=== PATIENT | female | born 1990 | race Caucasian/White ===

== ENCOUNTER 2017-04-12 23:41 | Day surgery (SDC) | payer OTHER, SELFPAY ==
[~2017-04-12] VITALS: Ht 162.6 cm; Wt 83.0 kg
[~2017-04-12 23:41] MED LIST: CIPR-249 PO; IBUP80TA PO; NEOM1SOL15 OT; NEOM1SOL17 AD
[2017-04-13] VITALS (7 sets, daily range): BP systolic 112–132; BP diastolic 58–96
[2017-04-13 00:21] LABS: BASO % 0.3 % (0.0-1.0); EOS # 0.2 K/mm3 (0.0-0.50); EOS % 2.2 % (0.0-3.0); LARGE UNSTAINED CELL % 0.4 % (0.0-4.0); LYMPH # 1.3 K/mm3 (1.5-6.5); MEAN CORPUSCULAR HEMOGLOBIN 29.7 pg (27.0-33.0); MEAN CORPUSCULAR VOLUME 87.4 fl (80.0-96.0); MONO # 0.2 K/mm3 (0.0-0.8); MONO % 2.1 % (0.0-5.0); NEUTROPHILS # 9.6 K/mm3 (1.8-7.7); NEUTROPHILS % 84.1 % (36.0-66.0); PLATELET COUNT, AUTOMATED 196 k/mm3 (150-450); RED CELL DISTRIBUTION WIDTH 12.8 % (11.5-14.5); WHITE BLOOD COUNT 11.5 K/mm3 (4.0-10.0)
[2017-04-13 00:46] LABS: ALBUMIN 3.7 GM/DL (3.2-5.2); ALBUMIN/GLOBULIN RATIO 0.88 (1.00-1.93); ALKALINE PHOSPHATASE 66 U/L (45-117); ALT/SGPT 26 U/L (12-78); AMYLASE 27 U/L (25-115); ANION GAP 5 MEQ/L (8-16); AST/SGOT 15 U/L (15-37); BILIRUBIN,DIRECT < 0.1 MG/DL (0.0-0.2); BILIRUBIN,TOTAL 0.2 MG/DL (0.2-1.0); BLOOD UREA NITROGEN 10 MG/DL (7-18); CALCIUM LEVEL 9.3 MG/DL (8.5-10.1); CARBON DIOXIDE LEVEL 28 MEQ/L (21-32); CHLORIDE LEVEL 108 MEQ/L (98-107); GLOMERULAR FILTRATION RATE > 60.0 (>60); GLUCOSE, FASTING 94 MG/DL (70-105); POTASSIUM SERUM 3.9 MEQ/L (3.5-5.1); SODIUM LEVEL 141 MEQ/L (136-145); TOTAL PROTEIN 7.9 GM/DL (6.4-8.2)
[2017-04-13] MEDS ORDERED: ONDANSETRON 4MG/2ML VIAL (J2405) IV ONE (01:00)
[2017-04-13 01:01] LABS: CONTROL LINE UCG INT CTR LINE PRESENT
[2017-04-13] MEDS ORDERED: KETOROLAC 30 MG/ML VIAL (J1885) IV ONE (01:15)
[2017-04-13] MEDS ORDERED: HYDROmorphone HCL 1 MG/ML SYRINGE (J1170) IV ONE ×2 (01:15→02:15)
--- NOTE | 2017-04-13 01:50 | REPUSA ---
CLINICAL HISTORY: Flank pain. TECHNIQUE: Multiple axial, sagittal and coronal CT images were obtained through the abdomen and pelvi s without administration of oral or IV contrast material. COMMENTS: Comparison is made to the prior exam performed on 10/31/2015. The liver is of uniform attenuation without mass or defect. There is no intra or extrahepatic biliary ductal dilatation. The spleen is normal. The gallbladder is within normal limits. The pancreas is of normal contour and attenuation characteristics. There is no evidence of adrenal mass. 6.5x4.2 mm obstructing stone in the right ureter at L3 level. This stone was in the pelvicalyceal zackary up of the right kidney on the prior exam. Moderate right hydroureteronephrosis. 2.2 cm right ovarian cyst. Mild diffuse thickening of the bladder. There is no evidence for appendicitis. There is no bowel wall thickening. No evidence for small or la rge bowel obstruction. There is no evidence of abdominal ascites or lymphadenopathy. There is no evidence of intrinsic or extrinsic bladder mass. There is no pelvic ascites or lymphadeno indira. Images of the lung bases show no evidence of pleural or parenchymal mass. There are no pleural effusi ons. The bony structures are free of lytic or blastic lesions. IMPRESSION: Slippage of a right renal stone to the proximal right ureter. Associated moderate right hydroureteronephrosis. Thickened bladder. Under distention versus cystitis. Right ovarian cyst. Thank you for your kind referral of this patient.
[2017-04-13] MEDS ORDERED: diphenhydrAMINE INJ 50MG/ML VIAL (J1200) IV STA (02:06)
[2017-04-13] MEDS ORDERED: NS 1,000 ML IV ONE ×2 (02:15)
[2017-04-13] MEDS ORDERED: TYLE500T78 PO (02:29)
[2017-04-13] MEDS ORDERED: CIPROFLOXACIN 400 MG in APPROPRIATE DILUENT 1 EA IV ONE (05:30)
[2017-04-13] MEDS ORDERED: CIPROFLOXACIN 400 MG in APPROPRIATE DILUENT 1 EA IV SCH (06:00)
[2017-04-13 06:11] LABS: CONTROL LINE HCG INT CTR LINE PRESENT
[2017-04-13] MEDS ORDERED: ACETAMINOPHEN TAB 650MG DOSE (2X325MG) PO PRN (06:15)
[2017-04-13] MEDS ORDERED: ONDANSETRON 4MG/2ML VIAL (J2405) IV PRN ×2 (06:15→19:30)
[2017-04-13] MEDS ORDERED: PERCOCET 5MG/325MG TAB PO PRN ×2 (06:15→19:30)
[2017-04-13] MEDS: NS 1,000 ML IV SCH (06:48)
[2017-04-13] MEDS: MORPHINE 2 MG/ML 1ML SYRINGE IV PRN ×3 (08:12→15:46)
[2017-04-13] MEDS ORDERED: CONRAY-60 60% 50ML VIAL (Q9961) As Ordered ONE (17:07)
[2017-04-13] MEDS ORDERED: CIPROFLOXACIN/D5W 400 MG/200 ML BAG (J0744) As Ordered ONE (17:08)
--- NOTE | 2017-04-13 17:15 | SMCUROLCON ---
Urology Consultation General Date of Consultation 04/13/17 Reason For Consultation This patient is seen for Kidney Stone. History of Present Illness This is a 27 y/o F w/ a history of kidney stones, who presented to the ED this morning w/ worsening right flank pain. A CT A/P was performed and notable for an obstructing 1cm proximal right ureteral stone. She notes the pain started 2 days ago and gradually got worse. She denies dysuria. She denies fevers. She has no change in medical conditions since she was last seen. 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, cystolitholapaxy Medications Current Medications Current Medications Acetaminophen (Tylenol Tab) 650 mg Q4HP PRN PO MILD PAIN or TEMP > 101; Start 04/13/17 at 06:15; Stop 05/13/17 at 06:14 Diphenhydramine HCl (Benadryl) 12.5 mg STAT STAT IV Last administered on 02:25; Start 04/13/17 at 02:06; Stop 04/13/17 at 02:07; Status DC Home Med (Med Rec Complete!) ASDIRECTED XX ; Start 04/13/17 at 02:30; Stop at 03:01; Status DC Morphine Sulfate (Morphine Sulfate Inj) 2 mg Q2HP PRN IV SEVERE PAIN (PS 8-10) Last administered on 04/13/17 15:46; Start 04/13/17 at 06:15; Stop 04/20/17 at 06:14 Ondansetron HCl (ZOFRAN INJection) 4 mg Q6HP PRN IV NAUSEA OR VOMITING Last administered on 04/13/17 11:08; Start 04/13/17 at 06:15; Stop 05/13/17 at 06:14 Oxycodone/ Acetaminophen (Percocet 5mg/ 325mg Tablet) 1 tab Q4HP PRN PO MODERATE PAIN (PS 5-7); Start 04/13/17 at 06:15; Stop 04/20/17 at 06:14 Sodium Chloride 1,000 ml @ 50 mls/hr Q20H IV Last administered on 04/13/17 06 :48; Start 04/13/17 at 06:10; Stop 05/13/17 at 06:09 Allergies Allergies: Coded Allergies: Penicillins (Verified Allergy, Unknown, 10/21/14) Uncoded Allergies: OPIATES (Adverse Reaction, Intermediate, PT IS NOT ALLERGIC. HAS A HISTROY OF OPIOD ABUSE., 11/19/15) Review of Systems Constitutional: Denies: Fever Skin: Denies: Rash, Lesions, Breakdown, Nail Changes Pulmonary: Denies: Dyspnea, Cough Cardiovascular: Denies Chest Pain, Denies Palpitations Genitourinary: Denies: Dysuria, Frequency Musculoskeletal: Reports: Back Pain (right flank pain) Psych: Reports: Mood Normal Physical Examination General Exam: Alert, Cooperative Chest Exam: Clear to auscultation, Normal air movement Heart Exam: Rate Normal, Regular Rhythm Abdomen Exam: Soft Skin Exam: Nl turgor and temperature Neuro Exam: Normal Speech Psych Exam: Mental status NL, Mood NL Vital Signs/I&O Vital Signs Date Time Temp Pulse Resp B/P (MAP) Pulse Ox O2 Delivery O2 Flow Rate FiO2 04/13/17 16:10 99.2 04/13/17 16:10 14 04/13/17 12:33 Room Air 04/13/17 12:29 92 112/62 (79) 94 I&O- Last 24 Hours up to 6 AM 04/13/17 05:59 Intake Total 2000 ml Balance 2000 ml Laboratory Data 24H Labs Laboratory Tests 2 04/13/17 00:11: White Blood Count 11.5H, Red Blood Count 5.00, Hemoglobin 14.8, Hematocrit 43.7 , Mean Corpuscular Volume 87.4, Mean Corpuscular Hemoglobin 29.7, Mean Corpuscular Hemoglobin Concent 34.0, Red Cell Distribution Width 12.8, Platelet Count 196, Neutrophils (%) (Auto) 84.1H, Lymphocytes (%) (Auto) 11.0L, Monocytes (%) (Auto) 2.1, Eosinophils (%) (Auto) 2.2, Basophils (%) (Auto) 0.3, Neutrophils # (Auto) 9.6H, Lymphocytes # (Auto) 1.3L, Monocytes # (Auto) 0.2, Eosinophils # (Auto) 0.2, Basophils # (Auto) 0.0, Large Unclassified Cells % 0.4 , Large Unclassified Cells # 0.0, Anion Gap 5L, Glomerular Filtration Rate > 60.0, Calcium Level 9.3, Aspartate Amino Transf (AST/SGOT) 15, Alanine Aminotransferase (ALT/SGPT) 26, Alkaline Phosphatase 66, Total Bilirubin 0.2, Direct Bilirubin < 0.1, Total Protein 7.9, Albumin 3.7, Albumin/Globulin Ratio 0.88L, Amylase Level 27, Lipase 175, Human Chorionic Gonadotropin, Qual NEGATIVE 04/13/17 00:42: Urine Appearance CLOUDYH, Urine Color YELLOW, Urine pH 7.0, Urine Specific [place] 1.018, Urine Protein 1+H, Urine Glucose (UA) NEGATIVE, Urine Ketones NEGATIVE, Urine Urobilinogen 0.2, Urine Bilirubin NEGATIVE, Urine Leukocyte Esterase 2+H, Urine Blood 3+H, Urine Nitrite POSITIVE, Urine WBC (Auto) 118H, Urine RBC (Auto) TNTCH, Urine Hyaline Casts (Auto) 0, Urine Bacteria (Auto) 2+H , Urine Squamous Epithelial Cells 10, Urine Mucus (Auto) SMALL, Urine Sperm ( Auto) , Urine Test NEGATIVE CBC/BMP Laboratory Tests 04/13/17 00:11 Red Blood Count 5.00, Mean Corpuscular Volume 87.4, Mean Corpuscular Hemoglobin 29.7, Mean Corpuscular Hemoglobin Concent 34.0, Red Cell Distribution Width 12.8 , Neutrophils (%) (Auto) 84.1 H, Lymphocytes (%) (Auto) 11.0 L, Monocytes (%) ( Auto) 2.1, Eosinophils (%) (Auto) 2.2, Basophils (%) (Auto) 0.3, Neutrophils # ( Auto) 9.6 H, Lymphocytes # (Auto) 1.3 L, Monocytes # (Auto) 0.2, Eosinophils # ( Auto) 0.2, Basophils # (Auto) 0.0 Microbiology Microbiology 04/13/17 Urine Culture, Worksheet Pending Assessment This is a 27 y/o F w/ an obstructing 1cm proximal right ureteral stone, likely in the lower moiety ureter of a duplicated collecting system. Her UA had 118 WBCs and was positive for nitrite. She likely has a UTI. I therefore did not recommend that we try to remove the stone today. I recommended that we keep her on antibiotics and decompress her collecting system by placing a stent. After a discussion of the risks and benefits, informed consent was signed. Plan - informed consent signed for cystoscopy, right ureteral stent placement - will give another dose of cipro distribution specialist to the OR - will plan for discharge home on antibiotics after the stent is placed - keep NPO for now - morphine prn pain MERYL MCCLURE MD Apr 13, 2017 17:14
[2017-04-13] MEDS ORDERED: ONDANSETRON 4MG/2ML VIAL (J2405) As Ordered ONE (18:21)
[2017-04-13] MEDS ORDERED: PROPOFOL 200 MG/20 ML VIAL As Ordered ONE (18:21)
[2017-04-13] MEDS ORDERED: LIDOCAINE 2% INJ 100 MG/5 ML SDV (FOR ANES.) As Ordered ONE (18:21)
[2017-04-13] MEDS ORDERED: MIDAZOLAM INJ 2 MG/2 ML VIAL (J2250) As Ordered ONE (18:21)
[2017-04-13] MEDS ORDERED: dexameTHASONE 4 MG/ML 1ML VIAL (J1100) As Ordered ONE (18:21)
[2017-04-13] MEDS ORDERED: fentaNYL 250 MCG/5 ML INJECTION (J3010) As Ordered ONE (18:21)
[2017-04-13] MEDS ORDERED: PHENYLephrine HCL 500 MCG/5 ML (100MCG/ML) SYRINGE (J2370) As Ordered ONE (18:22)
[2017-04-13] MEDS ORDERED: fentaNYL 100 MCG/2 ML INJECTION (J3010) IV PRN (19:30)
[2017-04-13] MEDS ORDERED: LR 1,000 ML IV SCH (19:30)
[2017-04-13] MEDS ORDERED: MORPHINE 2 MG/ML 1ML SYRINGE IV PRN (19:30)
[2017-04-13] MEDS ORDERED: NICOTINE POLACRILEX 2 MG GUM PO PRN (23:15)
[2017-04-14 02:00] VITALS: BP 115/68
[2017-04-14] MEDS: NS 1,000 ML IV SCH (05:04)
[2017-04-14 06:00] VITALS: BP 95/63
[2017-04-14] MEDS ORDERED: CIPROFLOXACIN 400 MG in APPROPRIATE DILUENT 1 EA IV ONE (06:00)
[2017-04-14 06:31] LABS: MEAN CORPUSCULAR HEMOGLOBIN 30.6 pg (27.0-33.0); MEAN CORPUSCULAR HGB CONC 34.5 g/dl (32.0-36.5); MEAN CORPUSCULAR VOLUME 88.7 fl (80.0-96.0); RED CELL DISTRIBUTION WIDTH 12.9 % (11.5-14.5); WHITE BLOOD COUNT 11.2 K/mm3 (4.0-10.0)
[2017-04-14 07:49] LABS: ANION GAP 8 MEQ/L (8-16); BLOOD UREA NITROGEN 6 MG/DL (7-18); CALCIUM LEVEL 8.9 MG/DL (8.5-10.1); CARBON DIOXIDE LEVEL 22 MEQ/L (21-32); CHLORIDE LEVEL 109 MEQ/L (98-107); CREATININE FOR GFR 0.53 MG/DL (0.55-1.02); GLOMERULAR FILTRATION RATE > 60.0 (>60); GLUCOSE, FASTING 139 MG/DL (70-105); POTASSIUM SERUM 4.4 MEQ/L (3.5-5.1); SODIUM LEVEL 139 MEQ/L (136-145)
[2017-04-14] MEDS ORDERED: CIPR-249 (08:08)
[2017-04-14] MEDS ORDERED: TYLE325T5 PO (08:08)
[2017-04-14] MEDS ORDERED: toradol (08:10)
--- NOTE | 2017-04-14 08:10 | IPNPDOC ---
Assessment/Plan Date Seen The patient was seen on 04/14/17. Patient Summary This is a 27 y/o F who is POD1 s/p cysto w/ right ureteral stent placement for an obstructing 1cm proximal right ureteral stone and likely UTI. She remained afebrile o/n. She has no pain. Plan/VTE VTE Prophylaxis Ordered?: No VTE Exclusion Mechanical Proph: Low Risk for VTE Plan - regular diet - plan discharge home today - patient will call urology office to arrange f/u for definitive stone treatment Subjective Review oF Systems Chief Complaint The patient is a 27-year-old female admitted with a reason for visit of Kidney Stone. Events since Last Encounter No acute events o/n. Pain well-controlled. No n/v. No f/c/ns. Objective Physical Examination General Exam: Alert, Cooperative ABDOMEN EXAM: BS Hypoactive, Soft, No: Tenderness Skin Exam: Nl turgor and temperature Neuro Exam: Normal Speech Psych Exam: Mental status NL, Mood NL Other physical findings no right CVA tenderness Vital Signs/I&O Vital Signs Date Time Temp Pulse Resp B/P (MAP) Pulse Ox O2 Delivery O2 Flow Rate FiO2 04/14/17 06:00 96.9 77 18 95/63 (74) 99 Room Air I&O- Last 24 Hours up to 6 AM 04/14/17 06:00 Intake Total 3155 ml Output Total 1625 ml Balance 1530 ml Laboratory Data Labs 24H Laboratory Tests 2 04/14/17 06:11: Anion Gap 8, Glomerular Filtration Rate > 60.0, Blood Urea Nitrogen 6L, Creatinine 0.53L, Sodium Level 139, Potassium Level 4.4, Chloride Level 109H, Carbon Dioxide Level 22, Calcium Level 8.9 CBC/BMP Laboratory Tests 04/14/17 06:11 Red Blood Count 4.03, Mean Corpuscular Volume 88.7, Mean Corpuscular Hemoglobin 30.6, Mean Corpuscular Hemoglobin Concent 34.5, Red Cell Distribution Width 12.9 , Calcium Level 8.9 Microbiology Microbiology 04/13/17 Urine Culture, Received Pending 04/13/17 Urine Culture, Worksheet Pending MERYL MCCLURE MD Apr 14, 2017 08:10
--- NOTE | 2017-04-14 12:19 | RO ---
DATE OF PROCEDURE: 04/13/2017 PREPROCEDURE DIAGNOSIS: Obstructing right ureteral stone. POSTPROCEDURE DIAGNOSIS: Obstructing right ureteral stone. PROCEDURE: Cystoscopy, right retrograde pyelogram with intraoperative interpretation of images, right ureteral stent placement. SURGEON: Dr. Milton Gaona PARTS DEPARTMENT SUPERVISOR: None. ANESTHESIA: General. OPERATIVE INDICATIONS: This is a 27-year-old female who presented to the emergency room this morning and was found to have an obstructing 1 cm proximal ureteral stone in the ureter of the lower moiety of a duplicated right collecting system. Based on her urinalysis results, she has a urinary tract infection. Because of this, it was recommended she be brought to the operating room today for ureteral stent placement. DESCRIPTION OF PROCEDURE: The patient was brought to the operating room where general anesthesia was induced. Prophylactic antibiotics were infused. She was then placed in dorsal lithotomy position, and prepped and draped in the usual sterile fashion. A rigid cystoscope was inserted into the urethral meatus and advanced into the bladder. Once within the bladder, both ureters were seen inserting on the right side of the trigone. The more lateral and superior ureter was then cannulated with an open ended ureteral catheter and that was advanced all the way up into the renal pelvis. A retrograde pyelogram was performed and was notable for moderate right hydronephrosis as well as what appeared to be a filling defect consistent with a radiolucent stone. A wire was then advanced up the open ended ureteral catheter into the collecting system. The open ended ureteral catheter was then removed and then it was advanced into the other ureteral orifice on the right side. This was advanced all the way up into the collecting system of the upper moiety on the right. A retrograde pyelogram was performed and it was negative for hydronephrosis. This confirmed that the obstructing stone was in the lower moiety on the right. At this point, the open ended ureteral catheter was removed and the previously placed wire was utilized to advance a #6-Upper Sorbian x 22-32 cm JJ ureteral stent up into the collecting system of the lower moiety of the right sided duplicated system. The wire was then removed and there were adequate curls of the stent in the renal pelvis and in the bladder. Of note, a lot of debris drained out of the stent when it was placed. At this time, urine was obtained to be sent for culture. The cystoscope was removed and an #18-Upper Sorbian Romo catheter was inserted into the bladder and filled with 10 mL of sterile water. It was then connected to gravity drainage and this marked the conclusion of the procedure. The patient was then taken out of dorsal lithotomy position, awakened from anesthesia and transported to the recovery room in stable condition. ESTIMATED BLOOD LOSS: 0 mL. COMPLICATIONS: None. SPECIMENS: Urine for culture. PLAN: I am going to keep the patient in the hospital overnight so she can get another dose of IV antibiotics in the morning. I will check labs on her in the morning and remove her catheter. If she remains afebrile and her labs look good , she will be sent home after her last dose of antibiotics. I will plan to send her home on oral antibiotics for 10 days. MARISABEL
--- NOTE | 2017-04-18 20:35 | REP ---
Clinical: Right ureteral stone. Technique: Intraoperative fluoroscopic imaging. Findings: Multiple images from retrograde pyelogram demonstrate a duplicated right collecting system with hydronephrosis and stent placement in the lower pole moiety and a normal appearance without hydronephrosis to the upper pole moiety. Total fluoroscopic time 17 seconds. Impression: Evidence for duplicated right renal collecting system with hydronephrosis and stent placement in the lower pole moiety. Signed by Maury Donaldson MD 04/18/2017 08:26 P
[2017-05-12] MEDS ORDERED: IBUP-1114 PO (10:19)
== END 2017-04-14 09:10 | disposition home or self-care (01) ==
LOC: M ED 23:41 → M OROP 04-13 06:10 → M MS5PR 04-13 12:10 → M OROP 04-14 09:10
PROVIDERS: ATTEND Urology
DX: N20.1 Calculus of ureter (principal); Q63.8 Other specified congenital malformations of kidney; F20.0 Paranoid schizophrenia; F17.210 Nicotine dependence, cigarettes, uncomplicated; Z88.0 Allergy status to penicillin; Z87.442 Personal history of urinary calculi
CPT/HCPCS: 36415; 52332; 74176; 74420; 80048; 80076; 81001; 82150; 83690; 84703; 85025; 85027; 87088; 87186; 96361; 96365; 96375; 96376; 99284; C1726; C2617; J0744; J1100; J1170; J1200; J1885; J2250; J2370; J2405; J3010; Q9961

== ENCOUNTER → 2017-04-26 | Outpatient (CLI) | payer SELFPAY ==
[~2017-04-26] MED LIST changes: +CIPR-249; +IBUP-1114 PO; +TYLE325T5 PO; +TYLE500T78 PO; +toradol
[2017-04-26 19:51] LABS: CALCIUM OXALATE CRYSTALS SMALL
[2017-04-27 10:04] LABS: MEAN CORPUSCULAR HEMOGLOBIN 29.7 pg (27.0-33.0); MEAN CORPUSCULAR HGB CONC 33.6 g/dl (32.0-36.5); MEAN CORPUSCULAR VOLUME 88.3 fl (80.0-96.0)
[2017-04-27 10:13] LABS: ANION GAP 8 MEQ/L (8-16); BLOOD UREA NITROGEN 8 MG/DL (7-18); CALCIUM LEVEL 9.2 MG/DL (8.5-10.1); CARBON DIOXIDE LEVEL 22 MEQ/L (21-32); CHLORIDE LEVEL 106 MEQ/L (98-107); GLOMERULAR FILTRATION RATE > 60.0 (>60); GLUCOSE, FASTING 89 MG/DL (70-105); POTASSIUM SERUM 3.8 MEQ/L (3.5-5.1); SODIUM LEVEL 136 MEQ/L (136-145)
== END ==
LOC: M SMT 14:18
PROVIDERS: ATTEND Urology
DX: Z01.818 Encounter for other preprocedural examination (principal); N20.0 Calculus of kidney; N39.0 Urinary tract infection, site not specified

== ENCOUNTER → 2017-05-26 | Day surgery (SDC) | payer SELFPAY ==
[~2017-05-26] VITALS: Ht 165.1 cm; Wt 77.1 kg
[~2017-05-26] MED LIST changes: +LR 1,000 ML IV ONE; +LevoFLOXacin IV 500 MG in APPROPRIATE DILUENT 1 EA IV ONE
[2017-05-26 12:03] VITALS: BP 126/68
[2017-05-26 12:20] LABS: CONTROL LINE UCG INT CTR LINE PRESENT
[2017-05-26 12:25] LABS: CALCIUM OXALATE CRYSTALS SMALL
== END ==
LOC: M SDC 11:31
PROVIDERS: ATTEND Urology
DX: N20.0 Calculus of kidney (principal); Z53.09 Procedure and treatment not carried out because of other contraindication

== ENCOUNTER 2017-06-02 10:14 | Day surgery (SDC) | payer SELFPAY ==
[~2017-06-02 10:14] MED LIST changes: -LR 1,000 ML IV ONE; -LevoFLOXacin IV 500 MG in APPROPRIATE DILUENT 1 EA IV ONE
[2017-06-02] MEDS ORDERED: D5W/0.2% SODIUM CHLORIDE 250 ML IV ONE (10:30)
[2017-06-02] MEDS ORDERED: LIDOCAINE 1% SDV 5 ML VIAL SQ ONE (10:30)
[2017-06-02] MEDS ORDERED: LevoFLOXacin IV 500 MG in APPROPRIATE DILUENT 1 EA IV ONE (11:00)
[2017-06-02] MEDS ORDERED: LR 1,000 ML IV ONE (11:00)
[2017-06-02] MEDS ORDERED: LIDOCAINE 2% INJ 100 MG/5 ML SDV (FOR ANES.) As Ordered ONE (11:21)
[2017-06-02] MEDS ORDERED: PROPOFOL 200 MG/20 ML VIAL As Ordered ONE (11:21)
[2017-06-02] MEDS ORDERED: fentaNYL 100 MCG/2 ML INJECTION (J3010) As Ordered ONE (11:21)
[2017-06-02] MEDS ORDERED: dexameTHASONE 4 MG/ML 1ML VIAL (J1100) As Ordered ONE (11:21)
[2017-06-02] MEDS ORDERED: ONDANSETRON 4MG/2ML VIAL (J2405) As Ordered ONE (11:21)
[2017-06-02] MEDS ORDERED: MIDAZOLAM INJ 2 MG/2 ML VIAL (J2250) As Ordered ONE (11:22)
[2017-06-02 11:55] LABS: CONTROL LINE UCG INT CTR LINE PRESENT
[2017-06-02] MEDS ORDERED: CONRAY-60 60% 50ML VIAL (Q9961) As Ordered ONE (12:48)
[2017-06-02] MEDS ORDERED: PHENYLephrine HCL 500 MCG/5 ML (100MCG/ML) SYRINGE (J2370) As Ordered ONE (13:26)
[2017-06-02] MEDS ORDERED: HYDROmorphone HCL 2 MG/ML 1ML VIAL (J1170) As Ordered ONE (13:36)
[2017-06-02] MEDS ORDERED: fentaNYL 100 MCG/2 ML INJECTION (J3010) IV PRN (14:15)
[2017-06-02] MEDS ORDERED: LR 1,000 ML IV SCH (14:15)
[2017-06-02] MEDS ORDERED: METOCLOPRAMIDE INJ 10MG/2ML VIAL (J2765) IV PRN (14:15)
[2017-06-02] MEDS ORDERED: ONDANSETRON 4MG/2ML VIAL (J2405) IV PRN (14:15)
[2017-06-02] MEDS ORDERED: MEPERIDINE INJ 25 MG/ML VIAL (J2175) IV PRN (14:15)
[2017-06-02] MEDS ORDERED: PERCOCET 5MG/325MG TAB PO PRN ×3 (14:15→14:30)
--- NOTE | 2017-06-02 14:22 | REP ---
RETROGRADE PYELOGRAM: Three views. HISTORY: Kidney stone. 7 seconds of fluoroscopy time is reported. FINDINGS: A sequence of three fluoroscopically obtained intraprocedural spot radiographs of the abdomen document double pigtail ureteral stent placement, guidewire manipulation, and contrast injection retrograde. No laterality markers are visible. Signed by Bipin Mohamud MD 06/02/2017 04:42 P
[2017-06-02] MEDS ORDERED: oxyBUTYnin 5 MG TAB PO PRN (14:30)
[2017-06-02 14:40] VITALS: BP 117/59
--- NOTE | 2017-06-05 07:05 | RO ---
DATE OF PROCEDURE: 06/02/2017 PREPROCEDURE DIAGNOSIS: Right kidney stone. POSTPROCEDURE DIAGNOSIS: Right kidney stone. PROCEDURE: Cystoscopy, right ureteroscopy with laser lithotripsy and basket extraction of stones, right retrograde pyelogram with intraoperative interpretation of images, right ureteral stent placement. SURGEON: Milton Gaona MD WAREHOUSE SPECIALIST: None. ANESTHESIA: General. OPERATIVE INDICATIONS: This is a 27-year-old female with a duplicated right collecting system who was brought to the operating room a little over a month ago for right ureteral stent placement for an obstructing 1 cm proximal right ureteral stone in the lower moiety of her duplicated system. When that stent was placed, the stone was pushed back up into the kidney. She is here today for treatment of the stone. DESCRIPTION OF PROCEDURE: The patient was brought to the operating room and general anesthesia was induced. Prophylactic antibiotics were infused. She was then placed in a dorsal lithotomy position and prepped and draped in the usual sterile fashion. A rigid cystoscope was inserted into the urethral meatus and advanced into the bladder. Once within the bladder, the previously placed stent was seen coming out of the ureteral orifice associated with lower pole moiety. A wire was then advanced up the collecting system on one side of the stent. The stent was then removed leaving the wire in place. At this point, a ureteral access sheath was advanced over the wire up into the collecting system. The stylette was removed and the wire was secured to the draping surface to serve as a safety wire. The flexible ureteroscope was then advanced up the access sheath and within the kidney the 1 cm stone was seen. The stone was then fragmented into several smaller pieces using a 200 micron laser fiber. All these fragments were then removed using a basket. I then examined the remainder of the kidney and any other stone fragments were broken down into tiny pieces using the laser. All remaining fragments were small enough to pass. At this point, a retrograde pyelogram was performed and it was notable for mild right hydronephrosis with no extravasation. I then removed the ureteral access sheath along with the ureteroscope and no additional stones were seen within the ureter. At this point, the previously placed wire was utilized to advance a 7 Spanish x 22-32 cm JJ ureteral stent up into the collecting system associated with the lower pole moiety of the right kidney. The wire was then removed and there were adequate curls of the stent in the renal pelvis and in the bladder. The bladder was then emptied of all fluid and this marked the conclusion of the procedure. The patient was then taken out of dorsal lithotomy position, awakened from anesthesia and transported to the recovery room in stable condition. ESTIMATED BLOOD LOSS: Zero mL. COMPLICATIONS: None. SPECIMENS: Kidney stone fragments. PLAN: The patient will followup in clinic in a few weeks for stent removal. MARISABEL
== END 2017-06-02 15:15 | disposition home or self-care (01) ==
LOC: M SDC 10:14
PROVIDERS: ATTEND Urology
DX: N20.0 Calculus of kidney (principal); F41.9 Anxiety disorder, unspecified; F32.9 Major depressive disorder, single episode, unspecified; R51 Headache; F20.0 Paranoid schizophrenia; Z88.0 Allergy status to penicillin; Z88.8 Allergy status to other drugs, medicaments and biological substances; Z72.0 Tobacco use
CPT/HCPCS: 52356; 74420; 81001; 82360; 84703; 87086; 88300; C1769; C2617; J1100; J1170; J1956; J2250; J2370; J2405; J3010; Q9961

== ENCOUNTER 2018-05-08 13:04 | Emergency (ER) | payer MEDICAID, OTHER, SELFPAY ==
[2018-05-08 14:27] LABS: CONTROL LINE UCG INT CTR LINE PRESENT; URINE PREG TEST NEGATIVE (NEGATIVE)
[2018-05-08 14:29] LABS: AMORPHOUS SEDIMENT SMALL (NEGATIVE); APPEARANCE, URINE HAZY (CLEAR); BACTERIA, URINE AUTO 2+ (NEGATIVE); BILIRUBIN, URINE AUTO NEGATIVE (NEGATIVE); BLOOD, URINE BLOOD 1+ (NEGATIVE); COLOR, URINE YELLOW (YELLOW); GLUCOSE, URINE (UA) AUTO NEGATIVE (NEGATIVE); KETONE, URINE AUTO NEGATIVE (NEGATIVE); LEUKOCYTE ESTERASE, URINE AUTO TRACE (NEGATIVE); MUCUS, URINE SMALL (NEGATIVE); NITRITE, URINE AUTO POSITIVE (NEGATIVE); PROTEIN, URINE AUTO NEGATIVE (NEGATIVE); RBC, URINE AUTO 2 /HPF (0-3); SPECIFIC GRAVITY URINE AUTO 1.023 (1.002-1.035); SQUAMOUS EPITHELIAL CELL UR AU 2 /HPF (0-6); UROBILINOGEN, URINE AUTO 0.2 mg/dL (0.0-2.0); WBC, URINE AUTO 8 /HPF (0-3)
[2018-05-08] MEDS: KETOROLAC 60 MG/2 ML VIAL (J1885) IM (15:30)
[2018-05-08] MEDS: NORCO, ANEXSIA 5/325MG TABLET (HYDROcodone/ACETAMINOPHEN) PO (16:06)
== END 2018-05-08 16:48 | disposition home or self-care (01) ==
LOC: M ED 13:04
DX: N39.0 Urinary tract infection, site not specified (principal); N83.201 Unspecified ovarian cyst, right side; Z87.442 Personal history of urinary calculi; Z96.0 Presence of urogenital implants; Z88.0 Allergy status to penicillin
CPT/HCPCS: J1885

== ENCOUNTER 2018-06-15 06:27 | Emergency (ER) | payer MEDICAID, OTHER | END 2018-06-15 08:58 | disposition home or self-care (01) | LOC: M ED 06:27 | DX: J06.9 Acute upper respiratory infection, unspecified (principal); F20.9 Schizophrenia, unspecified; F41.9 Anxiety disorder, unspecified; F31.9 Bipolar disorder, unspecified; F43.10 Post-traumatic stress disorder, unspecified; F17.200 Nicotine dependence, unspecified, uncomplicated; Z88.0 Allergy status to penicillin | CPT/HCPCS: 71046 ==

== ENCOUNTER 2018-06-20 05:49 | Emergency (ER) | payer OTHER, MEDICAID | END 2018-06-20 07:30 | disposition home or self-care (01) | LOC: M ED 05:49 | DX: J20.9 Acute bronchitis, unspecified (principal); J06.9 Acute upper respiratory infection, unspecified; F43.10 Post-traumatic stress disorder, unspecified; F31.9 Bipolar disorder, unspecified; F17.210 Nicotine dependence, cigarettes, uncomplicated; Z88.0 Allergy status to penicillin; Z79.899 Other long term (current) drug therapy | CPT/HCPCS: 71046 ==

== ENCOUNTER 2018-07-02 21:58 | Emergency (ER) | payer OTHER | END 2018-07-03 03:13 | disposition left against medical advice (07) | LOC: M ED 21:58 | DX: Z53.21 Procedure and treatment not carried out due to patient leaving prior to being seen by health care provider (principal) ==

== ENCOUNTER 2018-07-03 14:39 | Emergency (ER) | payer OTHER ==
[2018-07-03] MEDS: GI COCKTAIL 50ML BTL(HYOSCYAMINE/MAALOX/LIDOCAINE VISCOUS)(1:3:1) PO (16:53)
[2018-07-03] MEDS: ONDANSETRON 4 MG ORAL DISINTEGRATING TAB (Q0162 PER 1MG) PO (16:53)
== END 2018-07-03 17:36 | disposition home or self-care (01) ==
LOC: M ED 14:39
DX: R10.13 Epigastric pain (principal); K21.9 Gastro-esophageal reflux disease without esophagitis
CPT/HCPCS: Q0162

== ENCOUNTER 2019-03-04 12:40 | Emergency (ER) | payer OTHER ==
[~2019-03-04] VITALS: Ht 162.6 cm; Wt 79.5 kg
[~2019-03-04 12:40] MED LIST changes: +ACET-683 PO; +ALL10TAB28 PO; +CORTOTSO AD; +MACR100C43 PO; -NEOM1SOL15 OT; -NEOM1SOL17 AD; +NEOM1SOL8 OT; +PRIL20TA2 PO; +PROAAER10 INH; +TESS100C PO; +ZITHTAB PO; +ZOFR4TAB14 PO
[2019-03-04 15:08] LABS: HEMATOCRIT 42.8 % (36.0-47.0); HEMOGLOBIN 14.4 g/dl (12.0-15.5); MEAN CORPUSCULAR HEMOGLOBIN 29.2 pg (27.0-33.0); MEAN CORPUSCULAR HGB CONC 33.6 g/dl (32.0-36.5); MEAN CORPUSCULAR VOLUME 86.8 fl (80.0-96.0); PLATELET COUNT, AUTOMATED 211 10^3/uL (150-450); RED BLOOD COUNT 4.93 10^6/uL (4.00-5.40); WHITE BLOOD COUNT 10.4 10^3/uL (4.0-10.0)
[2019-03-04 15:30] LABS: BLOOD UREA NITROGEN 6 MG/DL (7-18); CALCIUM LEVEL 8.7 MG/DL (8.5-10.1); CARBON DIOXIDE LEVEL 21 MEQ/L (21-32); CHLORIDE LEVEL 107 MEQ/L (98-107); CREATININE FOR GFR 0.47 MG/DL (0.55-1.30); GLOMERULAR FILTRATION RATE > 60.0 (>60); GLUCOSE, FASTING 78 MG/DL (70-100); POTASSIUM SERUM 3.5 MEQ/L (3.5-5.1); SODIUM LEVEL 137 MEQ/L (136-145)
[2019-03-04 15:51] LABS: HCG, SERUM QUALITATIVE POSITIVE (NEGATIVE)
[2019-03-04] MEDS ORDERED: CIPROFLOXACIN 400 MG in APPROPRIATE DILUENT 1 EA IV ONE (16:00)
[2019-03-04] MEDS ORDERED: ONDANSETRON 4MG/2ML VIAL (J2405) IV ONE (16:00)
[2019-03-04] MEDS ORDERED: KETOROLAC 30 MG/ML VIAL (J1885) IV ONE (16:00)
[2019-03-04] MEDS ORDERED: NS 1,000 ML IV ONE (16:00)
[2019-03-04] MEDS ORDERED: NITROFURANTOIN (MACROBID) 100 MG CAP PO ONE (16:15)
[2019-03-04 17:01] VITALS: BP 121/58
--- NOTE | 2019-03-04 17:15 | REP ---
RENAL AND BLADDER ULTRASOUND: Real-time sonographic evaluation of the left kidney is performed and demonstrates both kidneys to be normal in size and echotexture, right kidney measuring 12.8 x 4.6 x 4.1 cm and left kidney 12.1 x 4.8 x 5.4 cm. There is no hydronephrosis bilaterally. No renal stones are seen. There is scarring of the mid right kidney. Urinary bladder is not optimally distended and not optimally evaluated. IMPRESSION: No hydronephrosis or nephrolithiasis. Electronically Signed by Kevin Do MD 03/04/2019 07:54 P
[2019-03-04] MEDS ORDERED: MACR100C43 PO (17:34)
[2019-03-04] MEDS ORDERED: ONDA4TAB6 PO (17:34)
--- NOTE | 2019-03-05 00:06 | ECGEPIP ---
Stationary ECG Study [facility] - ED Test Date: 2019-03-04 Pat Name: DENNYS GANDARA Department: Room: - Gender: F Instrument Adjuster: : 1990 Requested By: Maria Eugenia Stein PA-C Order Number: [id number] Reading MD: Kaushik Hinson Measurements Intervals [place] Rate: 60 P: 40 WV: 150 QRS: 15 QRSD: 93 T: 15 QT: 414 QTc: 415 Interpretive Statements SINUS RHYTHM Comparison tracing not on file Electronically Signed On 03-05-2019 0:06:31 EDT by Kaushik Hinson
== END 2019-03-04 17:50 | disposition home or self-care (01) ==
LOC: M ED 12:40
DX: N39.0 Urinary tract infection, site not specified (principal); R10.9 Unspecified abdominal pain; R11.2 Nausea with vomiting, unspecified; Z87.442 Personal history of urinary calculi; R51 Headache; F20.0 Paranoid schizophrenia; Z96.0 Presence of urogenital implants; Z72.0 Tobacco use; Z88.0 Allergy status to penicillin
CPT/HCPCS: 76775; 80048; 81001; 84703; 85027; 87086; 93005; 96361; 96374; 99284; J2405

== ENCOUNTER → 2019-04-02 | Outpatient (REF) | payer OTHER ==
[~2019-04-02] MED LIST changes: +ONDA4TAB6 PO
== END ==
LOC: M LAB REF 17:37
PROVIDERS: ATTEND Advanced Practice Midwife
DX: Z12.4 Encounter for screening for malignant neoplasm of cervix (principal)

== ENCOUNTER → 2019-04-23 | Outpatient (CLI) | payer OTHER, SELFPAY ==
[2019-04-23 12:42] LABS: BASO % 0.2 % (0.0-1.0); EOS # 0.1 10^3/uL (0.0-0.50); EOS % 1.1 % (0.0-3.0); HEMATOCRIT 38.4 % (36.0-47.0); HEMOGLOBIN 13.2 g/dl (12.0-15.5); LYMPH # 1.5 10^3/uL (1.5-6.5); LYMPH % 14.6 % (24.0-44.0); MEAN CORPUSCULAR HEMOGLOBIN 29.6 pg (27.0-33.0); MEAN CORPUSCULAR HGB CONC 34.4 g/dl (32.0-36.5); MEAN CORPUSCULAR VOLUME 86.1 fl (80.0-96.0); MONO # 0.5 10^3/uL (0.0-0.8); MONO % 4.5 % (0.0-5.0); NEUTROPHILS # 8.4 10^3/uL (1.8-7.7); NEUTROPHILS % 78.9 % (36.0-66.0); PLATELET COUNT, AUTOMATED 170 10^3/uL (150-450); RED BLOOD COUNT 4.46 10^6/uL (4.00-5.40); WHITE BLOOD COUNT 10.6 10^3/uL (4.0-10.0)
[2019-04-23 14:45] LABS: CHLAMYDIA DNA AMPLIFICATION NEGATIVE (NEGATIVE); GC DNA AMPLIFICATION NEGATIVE (NEGATIVE)
[2019-04-24 09:24] LABS: HEPATITIS C VIRUS ABY INDEX 0.1 INDEX (<0.8); HIV 1&2 SCREEN CENTAUR NEGATIVE (NEGATIVE); RUBELLA IgG QUALITATIVE IMMUNE (IMMUNE)
== END ==
LOC: M LAB 12:06
PROVIDERS: ATTEND Advanced Practice Midwife
DX: Z34.81 Encounter for supervision of other normal pregnancy, first trimester (principal); Z3A.00 Weeks of gestation of pregnancy not specified

== ENCOUNTER 2019-05-06 21:42 | Emergency (ER) | payer SELFPAY ==
[~2019-05-06] VITALS: Ht 162.6 cm; Wt 78.9 kg
[2019-05-06 22:32] LABS: URINE PREG TEST POSITIVE (NEGATIVE)
[2019-05-06 22:34] LABS: APPEARANCE, URINE CLOUDY (CLEAR); BACTERIA, URINE AUTO 2+ (NEGATIVE); BILIRUBIN, URINE AUTO NEGATIVE (NEGATIVE); BLOOD, URINE BLOOD 1+ (NEGATIVE); COLOR, URINE YELLOW (YELLOW); GLUCOSE, URINE (UA) AUTO NEGATIVE (NEGATIVE); KETONE, URINE AUTO NEGATIVE (NEGATIVE); LEUKOCYTE ESTERASE, URINE AUTO 3+ (NEGATIVE); MUCUS, URINE SMALL (NEGATIVE); NITRITE, URINE AUTO POSITIVE (NEGATIVE); PROTEIN, URINE AUTO 1+ mg/dL (NEGATIVE); RBC, URINE AUTO 12 /HPF (0-3); SPECIFIC GRAVITY URINE AUTO 1.015 (1.002-1.035); SQUAMOUS EPITHELIAL CELL UR AU 7 /HPF (0-6); UROBILINOGEN, URINE AUTO 0.2 mg/dL (0.0-2.0); WBC, URINE AUTO 105 /HPF (0-3)
[2019-05-06] MEDS ORDERED: NS 1,000 ML IV ONE (23:15)
[2019-05-06] MEDS ORDERED: METOCLOPRAMIDE INJ 10MG/2ML VIAL (J2765) IV ONE (23:15)
[2019-05-06 23:34] LABS: HEMATOCRIT 33.2 % (36.0-47.0); HEMOGLOBIN 11.4 g/dl (12.0-15.5); MEAN CORPUSCULAR HEMOGLOBIN 29.8 pg (27.0-33.0); MEAN CORPUSCULAR HGB CONC 34.3 g/dl (32.0-36.5); MEAN CORPUSCULAR VOLUME 86.7 fl (80.0-96.0); PLATELET COUNT, AUTOMATED 153 10^3/uL (150-450); RED BLOOD COUNT 3.83 10^6/uL (4.00-5.40); WHITE BLOOD COUNT 10.3 10^3/uL (4.0-10.0)
[2019-05-06 23:59] LABS: BLOOD UREA NITROGEN 4 MG/DL (7-18); CALCIUM LEVEL 8.4 MG/DL (8.5-10.1); CARBON DIOXIDE LEVEL 24 MEQ/L (21-32); CHLORIDE LEVEL 103 MEQ/L (98-107); GLOMERULAR FILTRATION RATE > 60.0 (>60); GLUCOSE, FASTING 91 MG/DL (70-100); HCG, SERUM QUANTITATIVE 8664 MIU/ML; POTASSIUM SERUM 3.2 MEQ/L (3.5-5.1); SODIUM LEVEL 135 MEQ/L (136-145)
[2019-05-07 02:03] VITALS: BP 98/52
== END 2019-05-07 02:06 | disposition home or self-care (01) ==
LOC: M ED 21:42
DX: O99.89 Other specified diseases and conditions complicating pregnancy, childbirth and the puerperium (principal); R51 Headache; O23.42 Unspecified infection of urinary tract in pregnancy, second trimester; Z88.0 Allergy status to penicillin; O99.332 Smoking (tobacco) complicating pregnancy, second trimester; F17.210 Nicotine dependence, cigarettes, uncomplicated; Z3A.16 16 weeks gestation of pregnancy
CPT/HCPCS: 80048; 81001; 84702; 84703; 85027; 86850; 86900; 86901; 87088; 87186; 96361; 96374; 99284; J2765

== ENCOUNTER → 2019-06-11 | Outpatient (REF) | payer SELFPAY | LOC: M LAB REF 16:42 | PROVIDERS: ATTEND Advanced Practice Midwife | DX: Z34.82 Encounter for supervision of other normal pregnancy, second trimester (principal) ==

== ENCOUNTER → 2019-06-12 | Outpatient (CLI) | payer MEDICAID, SELFPAY ==
[~2019-06-12] MED LIST changes: -ALL10TAB28 PO; +ALL10TAB29 PO
--- NOTE | 2019-06-13 09:21 | REP ---
Clinical: Anatomical evaluation. Comparison: None . Findings: Examination demonstrates a single live intrauterine in variable presentation. motion is identified by technologist. Placenta is noted the posterior and grade zero without evidence for placenta previa or abruption. Amniotic fluid volume is normal. Cervix measures 4.5 cm in length and appears closed. No evidence for nuchal cord. Gestational age by LMP 21 weeks 1 day with BRENDEN the 10/22/2019 . Gestational age by current measurements 20 weeks 5 days with BRENDEN 10/25/2019 . FHR equals 144 beats per minute. BPD 4.7 cm 20 weeks 2 days HC 17.5 cm 20 weeks 0 days AC 15.7 cm 20 weeks 6 days FL 3.3 cm 20 weeks 3 days HL 3.4 cm 21 weeks 5 days HC/AC ratio 1.11 Estimated weight 364 grams ( 30th percentile). Anatomical assessment demonstrates normal structures including cranium, choroid plexus, cavum, cerebellum/posterior fossa, facial features, lungs, four-chamber heart/ventricular outflow tracts, diaphragm, stomach, cord insertion/three-vessel cord, kidneys/bladder, spine, and extremities. Impression: Single live intrauterine in variable presentation demonstrating appropriate interval growth. 2. Anatomical assessment is complete and normal. No gross abnormalities are identified. Electronically Signed by Maury Donaldson MD 06/13/2019 09:13 A
== END ==
LOC: M RAD 11:01
PROVIDERS: ATTEND Advanced Practice Midwife
DX: Z34.02 Encounter for supervision of normal first pregnancy, second trimester (principal); Z3A.20 20 weeks gestation of pregnancy

== ENCOUNTER → 2019-07-11 | Outpatient (REF) | payer SELFPAY | LOC: M LAB REF 13:09 | PROVIDERS: ATTEND Advanced Practice Midwife | DX: Z34.82 Encounter for supervision of other normal pregnancy, second trimester (principal); Z3A.00 Weeks of gestation of pregnancy not specified ==

== ENCOUNTER → 2019-08-21 | Outpatient (CLI) | payer MEDICAID ==
[2019-08-21 12:46] LABS: HEMATOCRIT 34.8 % (36.0-47.0); HEMOGLOBIN 11.4 g/dl (12.0-15.5); MEAN CORPUSCULAR HGB CONC 32.8 g/dl (32.0-36.5); MEAN CORPUSCULAR VOLUME 88.5 fl (80.0-96.0); PLATELET COUNT, AUTOMATED 175 10^3/uL (150-450); RED BLOOD COUNT 3.93 10^6/uL (4.00-5.40); WHITE BLOOD COUNT 11.2 10^3/uL (4.0-10.0)
== END ==
LOC: M LAB 11:08
PROVIDERS: ATTEND Advanced Practice Midwife
DX: Z34.82 Encounter for supervision of other normal pregnancy, second trimester (principal)

== ENCOUNTER → 2019-10-01 | Outpatient (REF) | payer OTHER, MEDICAID | LOC: M SFHCWAGY 12:58 | PROVIDERS: ATTEND Advanced Practice Midwife | DX: Z34.93 Encounter for supervision of normal pregnancy, unspecified, third trimester (principal) ==

== ENCOUNTER 2019-10-24 23:35 | Inpatient (IN) | payer MEDICAID, OTHER ==
[~2019-10-24] VITALS: Ht 165.1 cm; Wt 93.9 kg
[2019-10-24 23:50] VITALS: BP 133/85
[2019-10-25] VITALS (9 sets, daily range): BP systolic 107–142; BP diastolic 66–82
[2019-10-25] MEDS ORDERED: ceFAZolin SOD 2 GM in IV 1 EA IV STA (00:04)
[2019-10-25] MEDS ORDERED: LACTATED RINGER'S 1000 ML IV STA (00:04)
--- NOTE | 2019-10-25 00:29 | HPEPDOC ---
Obstetrical History & Physical General Date of Admission Oct 25, 2019 @ 00:08 History of Present Illness Patient is a 29-year-old female who presents at 40 weeks 2 days gestation and labor and delivery floor with uterine contractions every 3-5 minutes. Patient denies fluid leakage or bleeding. Patient says she did lose her mucous plug about an hour and a half ago. She is feeling painful uterine contractions every 3-5 minutes. She is feeling baby move. Chief Complaint: Contractions, term Information Provided By: Patient Age: 29 : 4 Term: 3 Pre-term: 0 Abortions: 0 Livin Care Care: Good Care Dating Final EDC: Oct 22, 2019 Final EDC by: 1st trimester (US) 1st Trimester Date: Apr 02, 2019 Weeks + Days: 11 EGA at Admission: 40.2 Past Medical History Past Obstetrical History : Past Obstetrical History: Multigravida (3, all at term. First at 41 weeks in 2008, female 8lbs 9oz, post-dates induction, Second at 40 weeks in 2009, male 8lbs 10oz, hips popped out place; third at 40 weeks in 2011, male 9 lbs, false labor) RADIATION CONTROL SPECIALIST History: No pertinent history Past Medical History Surgical History: Other (kidney stones, EWSL) Family History Significant Family History: No pertinent family hx Social History Marital Status: Family situation: Spouse/partner home Psychosocial History: Anxiety, Depression * Smoker: former Smoker Alcohol: Denies Drugs: denies Imunizations Tdap status: current Allergies Coded Allergies: Penicillins (Verified Allergy, Severe, anaphylaxis, 03/04/19) Medications Scheduled Nitrofurantoin Monohyd/M-Cryst (Macrobid 100 mg Capsule) 100 Mg Capsule, 100 MG PO BID for uti Scheduled PRN Ondansetron (Ondansetron Odt) 4 Mg Tab.rapdis, 4 MG PO Q8HP PRN for nausea/vomiting Physical Examination Physical Examination GENERAL: Alert and oriented times three. BREAST: . ABDOMEN: Gravid and non-tender to touch. FETUS: Is vertex (VTX) by sterile vaginal examination (SVE) HEART RATE: Regular rate and rhythm. LUNGS: No respiratory distress EXTREMITIES: No edema. Vital Signs/I&O Vital Signs Date Time Temp Pulse Resp B/P (MAP) Pulse Ox O2 Delivery O2 Flow Rate FiO2 10/24/19 23:50 97.8 92 18 133/85 (101) Laboratory Data 24H LABS Laboratory Tests 2 10/25/19 00:02: Serology Scanned Report Hepatitis B Testing Urine Culture: Escherichia (E.) Coli Pertinent Laboratoy Data Blood Type: A+ RBC Antibody Screen: Negative HIV: Negative Hepatitis B: Negative Hepatitis C: Negative Rapid Plasma Reagin: Nonreactive Rubella: Immune Varicella: Immune Chlamydia/Gonorrhea: Negative Group B Streptococcus: Positive Quad Screen Test: Declined Cystic Fibrosis: Unknown Anatomy Ultrasound Placenta Location: Posterior Normal Anatomy: Yes Steroid Therapy Steroid Therapy: No Vaginal Examination Dilation: 5 cm Effacement: 80% Station: -1 Cervical Consistency: Soft Cervical Position: Middle Presentation: Cephalic presentation Assessment Variability: Moderate Accelerations: Present Decelerations: None Tocometer Contractions: Yes Frequency: regular Multi-drug resistant Organism: No history of MDRO Assessment/Plan Assessment Denisse is a 29-year-old (G)4 para (P)3-0-0-3 at 40+2 weeks by 11-week ultrasound. Presents to Labor and Delivery (L&D) with contractions every 3-5 minutes. Plan Admit and orient. Flap Presser and consent. Diet: Clear liquid. Group B Streptococcus (GBS) positive. Labs and intravenous (IV) per unit protocol. Counseled on Pitocin and induction of labor (IOL). Lactated Ringers (LR): Bolus 1000 mL, then at 125 mL/hr. Anticipate [normal spontaneous delivery ()]. C-S as appropriate. Patient would like epidural. GME ATTESTATION GME ATTESTATION My faculty preceptor for this patient encounter was physically present during the encounter and was fully available. All aspects of the patient interview, examination, medical decision making process, and medical care plan development were reviewed and approved by the faculty preceptor. The faculty preceptor is aware and concurs with the plan as stated in the body of this note and will attest to such by his/her cosignature. GETACHEW VICTORIA DO Oct 25, 2019 00:29
[2019-10-25 00:31] LABS: HEMATOCRIT 32.9 % (36.0-47.0); MEAN CORPUSCULAR HEMOGLOBIN 28.1 pg (27.0-33.0); MEAN CORPUSCULAR HGB CONC 33.4 g/dl (32.0-36.5); MEAN CORPUSCULAR VOLUME 83.9 fl (80.0-96.0); PLATELET COUNT, AUTOMATED 175 10^3/uL (150-450); RED BLOOD COUNT 3.92 10^6/uL (4.00-5.40); WHITE BLOOD COUNT 14.6 10^3/uL (4.0-10.0)
[2019-10-25] MEDS ORDERED: LR 1,000 ML IV SCH (00:39)
[2019-10-25] MEDS ORDERED: OXYTOCIN 30 UNITS IN 0.9% NaCl 500ML IV BAG (J2590) As Ordered ONE (00:51)
[2019-10-25] MEDS ORDERED: OXYTOCIN DRIP 30 UNITS in IV 1 EA IV SCH (01:04)
--- NOTE | 2019-10-25 01:13 | DNPDOC ---
[facility] Delivery Note Delivery Note DATE OF DELIVERY: 10/25/2019 PREDELIVERY DIAGNOSIS: 40-3/7 weeks' gestation and labor. POST DELIVERY DIAGNOSIS: Delivered. PROCEDURE: Spontaneous vaginal delivery. FABRICATION DEPARTMENT SUPERVISOR: Dr. Morales ANESTHESIA: none. ESTIMATED BLOOD LOSS: 200 mL. FINDINGS: 7 pound 3 ounce female infant, Score 9/9, nuchal cord times 0. DELIVERY SUMMARY: Patient is a 29-year-old 4 now para 4-0-0-4 who was admitted to labor and delivery for active labor. Patient began pushing and after minimal pushing baby presented occiput anterior. The head was delivered and rest she used to occiput left. The anterior shoulder was delivered with downward traction followed by the posterior shoulder and quickly thereafter the corpus. Baby was placed on mom's stomach for immediate bonding. Baby was born at 0052. The cord was double clamped and cut by myself. Baby is brought over to the incubator for further care. Cord blood was collected. Placenta was delivered shortly thereafter at 0057. Placenta was intact. Inspection of the vagina shows 2 small labial abrasions that did not require repair. Sponge and instrument count was correct. Mom was GBS positive and did not receive adequate prophylaxis prior to delivery. Spontaneous rupture of membranes occurred just prior to delivery. GME ATTESTATION GME ATTESTATION My faculty preceptor for this patient encounter was physically present during the encounter and was fully available. All aspects of the patient interview, examination, medical decision making process, and medical care plan development were reviewed and approved by the faculty preceptor. The faculty preceptor is aware and concurs with the plan as stated in the body of this note and will attest to such by his/her cosignature. GETACHEW VICTORIA DO Oct 25, 2019 01:13
[2019-10-25] MEDS ORDERED: ACETAMINOPHEN TAB 650MG DOSE (2X325MG) PO PRN ×2 (01:15)
[2019-10-25] MEDS ORDERED: ONDANSETRON 4MG/2ML VIAL (J2405) IV PRN ×2 (01:15)
[2019-10-25] MEDS ORDERED: IBUPROFEN 800 MG TAB PO PRN ×2 (01:15)
[2019-10-25] MEDS ORDERED: ACETAMINOPHEN 500 MG TAB PO PRN ×2 (01:15)
[2019-10-25] MEDS ORDERED: RHOGAM 300 MCG (1500 IU) INJ (J2790) IM SCH ×2 (01:15)
[2019-10-25] MEDS ORDERED: MEASLES,MUMPS,RUBELLA VACCINE INJ (MMR-II) (90707) SC SCH ×2 (01:15)
[2019-10-25] MEDS ORDERED: DIBUCAINE 1% OINTMENT 30GM TOP PRN ×2 (01:15)
[2019-10-25] MEDS ORDERED: METHYLERGONOVINE MALEATE 0.2 MG TAB PO PRN ×2 (01:15)
[2019-10-25] MEDS ORDERED: DOCUSATE SODIUM 100 MG CAP PO PRN ×2 (01:15)
[2019-10-25] MEDS ORDERED: IBUPROFEN 600 MG TAB PO PRN ×2 (01:15)
[2019-10-25] MEDS ORDERED: ceFAZolin SOD 1 GM in D5W MINI-BAG PLUS 50 ML IV SCH (08:15)
[2019-10-25] MEDS ORDERED: PRENATAL VITAMINS CHEWABLE TABLET PO SCH (09:00)
[2019-10-25] MEDS: PRENATAL VITAMINS CHEWABLE TABLET PO SCH (09:31)
[2019-10-25] MEDS ORDERED: SLF 3 ML SYR IV PRN (11:30)
[2019-10-25] MEDS: SLF 3 ML SYR IV SCH ×2 (13:22→22:00)
[2019-10-26 06:00] VITALS: BP 113/71
--- NOTE | 2019-10-26 07:40 | IPNPDOC ---
Text Note Date of Service The patient was seen on 10/26/19. NOTE PP #1 Feels well. Adequate pain management. . Voiding VSS, afebrile, normotensive Breasts soft Fundus firm, NT, down 1 FB Lochia rubra light without odor Perineum intact PP #1 Routine care. Consider discharge in am VS,Fishbone, I+O VS, Fishbone, I+O Vital Signs Date Time Temp Pulse Resp B/P (MAP) Pulse Ox O2 Delivery O2 Flow Rate FiO2 10/26/19 06:00 98.6 79 20 113/71 (85) 97 Room Air Bonnie Mccabe CNM Oct 26, 2019 07:40
[2019-10-26] MEDS ORDERED: medroxyPROGESTERone ACET IM SUSP 150 MG/ML VIAL (J1050) IM ONE (09:00)
[2019-10-26] MEDS: PRENATAL VITAMINS CHEWABLE TABLET PO SCH (09:00)
[2019-10-26 18:05] VITALS: BP 130/74
[2019-10-27 06:01] VITALS: BP 106/61
[2019-10-27] MEDS ORDERED: medroxyPROGESTERone ACET IM SUSP 150 MG/ML VIAL (J1050) IM ONE (09:00)
[2019-10-27] MEDS: PRENATAL VITAMINS CHEWABLE TABLET PO SCH (10:59)
[2019-10-27] MEDS ORDERED: IBUP80TA PO (11:00)
[2019-10-27] MEDS ORDERED: ACET-683 PO (11:00)
== END 2019-10-27 11:30 | disposition home or self-care (01) | DRG 560 ==
LOC: M LDO 23:35 → M LDI 23:59 → M OBS 10-25 03:19
PROVIDERS: ADMIT Obstetrics & Gynecology; ATTEND Obstetrics & Gynecology
PROC: 10E0XZZ Delivery of Products of Conception, External Approach (ICD-10-PCS; principal; 2019-10-25)
DX: O48.0 Post-term pregnancy (principal); O99.824 Streptococcus B carrier state complicating childbirth; Z3A.40 40 weeks gestation of pregnancy; Z88.0 Allergy status to penicillin; Z37.0 Single live birth

== ENCOUNTER 2019-12-20 08:51 | Day surgery (SDC) | payer OTHER ==
[~2019-12-20] VITALS: Ht 162.6 cm; Wt 86.6 kg
[~2019-12-20 08:51] MED LIST changes: +ACETAMINOPHEN 1000MG 100ML IV BTL (OFIRMEV) (J0131 PER 10MG) As Ordered ONE; +LIDOCAINE 2% INJ 100 MG/5 ML SDV (FOR ANES.) As Ordered ONE; +LR 1,000 ML IV ONE; +LR 1,000 ML IV SCH; +MIDAZOLAM INJ 2 MG/2 ML VIAL (J2250) As Ordered ONE; +ONDANSETRON 4MG/2ML VIAL (J2405) As Ordered ONE; +PHENYLephrine HCL 500 MCG/5 ML (100MCG/ML) SYRINGE (J2370) As Ordered ONE; +ROCURONIUM BROMIDE 50 MG/5 ML VIAL As Ordered ONE; +SUGAMMADEX SODIUM 500 MG/5 ML VIAL (BRIDION) As Ordered ONE; +dexameTHASONE 4 MG/ML 1ML VIAL (J1100) As Ordered ONE; +ePHEDrine SULFATE 25 MG/5 ML(5MG/ML) SYRINGE As Ordered ONE; +fentaNYL 250 MCG/5 ML INJECTION (J3010) As Ordered ONE; +propofoL 200 MG/20 ML VIAL As Ordered ONE
[2019-12-20] MEDS ORDERED: BUPIVACAINE HCL 0.25% 30 ML VIAL As Ordered ONE (09:15)
[2019-12-20 09:31] LABS: HEMATOCRIT 38.7 % (36.0-47.0); HEMOGLOBIN 12.6 g/dl (12.0-15.5); MEAN CORPUSCULAR HEMOGLOBIN 26.9 pg (27.0-33.0); MEAN CORPUSCULAR HGB CONC 32.6 g/dl (32.0-36.5); MEAN CORPUSCULAR VOLUME 82.5 fl (80.0-96.0); PLATELET COUNT, AUTOMATED 237 10^3/uL (150-450); RED BLOOD COUNT 4.69 10^6/uL (4.00-5.40); WHITE BLOOD COUNT 7.2 10^3/uL (4.0-10.0)
[2019-12-20 09:43] LABS: HCG, SERUM QUALITATIVE NEGATIVE (NEGATIVE)
[2019-12-20] MEDS ORDERED: fentaNYL 100 MCG/2 ML INJECTION (J3010) As Ordered ONE (11:21)
[2019-12-20] MEDS ORDERED: OXYC1TAB23 PO (11:22)
[2019-12-20] MEDS ORDERED: oxyCODONE 5MG TAB As Ordered ONE (11:22)
[2019-12-20] MEDS: fentaNYL 100 MCG/2 ML INJECTION (J3010) IV PRN ×4 (11:24→11:40)
[2019-12-20] MEDS ORDERED: MEPERIDINE INJ 25 MG/ML VIAL (J2175) IV PRN (11:45)
[2019-12-20] MEDS ORDERED: METOCLOPRAMIDE INJ 10MG/2ML VIAL (J2765) IV PRN (11:45)
[2019-12-20] MEDS ORDERED: LR 1,000 ML IV SCH ×2 (11:45)
[2019-12-20] MEDS ORDERED: oxyCODONE 5MG TAB PO PRN (11:45)
[2019-12-20] MEDS ORDERED: ONDANSETRON 4MG/2ML VIAL (J2405) IV PRN (11:45)
[2019-12-20 13:25] VITALS: BP 146/67
== END 2019-12-20 14:50 | disposition home or self-care (01) ==
LOC: M SDC 08:51
PROVIDERS: ATTEND Obstetrics & Gynecology
DX: Z30.2 Encounter for sterilization (principal); F41.9 Anxiety disorder, unspecified; F32.9 Major depressive disorder, single episode, unspecified; Z88.0 Allergy status to penicillin
CPT/HCPCS: 36415; 58661; 84703; 85027; 86850; 86900; 86901; 88302; J0131; J1100; J2250; J2370; J2405; J3010

== ENCOUNTER → 2020-08-25 | Outpatient (CLI) | payer OTHER ==
[~2020-08-25] MED LIST changes: -ACETAMINOPHEN 1000MG 100ML IV BTL (OFIRMEV) (J0131 PER 10MG) As Ordered ONE; -ALL10TAB29 PO; +CETI-24 PO; -LIDOCAINE 2% INJ 100 MG/5 ML SDV (FOR ANES.) As Ordered ONE; -LR 1,000 ML IV ONE; -LR 1,000 ML IV SCH; -MIDAZOLAM INJ 2 MG/2 ML VIAL (J2250) As Ordered ONE; -ONDANSETRON 4MG/2ML VIAL (J2405) As Ordered ONE; +OXYC1TAB23 PO; -PHENYLephrine HCL 500 MCG/5 ML (100MCG/ML) SYRINGE (J2370) As Ordered ONE; -ROCURONIUM BROMIDE 50 MG/5 ML VIAL As Ordered ONE; -SUGAMMADEX SODIUM 500 MG/5 ML VIAL (BRIDION) As Ordered ONE; -dexameTHASONE 4 MG/ML 1ML VIAL (J1100) As Ordered ONE; -ePHEDrine SULFATE 25 MG/5 ML(5MG/ML) SYRINGE As Ordered ONE; -fentaNYL 250 MCG/5 ML INJECTION (J3010) As Ordered ONE; -propofoL 200 MG/20 ML VIAL As Ordered ONE
[2020-08-25 11:09] LABS: HEMATOCRIT 41.7 % (36.0-47.0); MEAN CORPUSCULAR HEMOGLOBIN 26.9 pg (27.0-33.0); MEAN CORPUSCULAR HGB CONC 31.2 g/dl (32.0-36.5); MEAN CORPUSCULAR VOLUME 86.3 fl (80.0-96.0); PLATELET COUNT, AUTOMATED 273 10^3/uL (150-450); RED BLOOD COUNT 4.83 10^6/uL (4.00-5.40); WHITE BLOOD COUNT 8.8 10^3/uL (4.0-10.0)
[2020-08-25 11:29] LABS: ALBUMIN 3.8 GM/DL (3.2-5.2); ALT/SGPT 16 U/L (12-78); BILIRUBIN,TOTAL 0.2 MG/DL (0.2-1.0); BLOOD UREA NITROGEN 9 MG/DL (7-18); CALCIUM LEVEL 9.4 MG/DL (8.5-10.1); CARBON DIOXIDE LEVEL 24 MEQ/L (21-32); CHLORIDE LEVEL 108 MEQ/L (98-107); CHOLESTEROL LEVEL 229 MG/DL (<200); CREATININE FOR GFR 0.71 MG/DL (0.55-1.30); FREE THYROXINE INDEX 2.4 % (1.3-4.8); GLOMERULAR FILTRATION RATE > 60.0 (>60); GLUCOSE, FASTING 77 MG/DL (70-100); HDL CHOLESTEROL 50 MG/DL (>40); IRON (FE) 41 UG/DL (50-170); LDL CHOLESTEROL 147 MG/DL (<100); NON-HDL-C 179 MG/DL; POTASSIUM SERUM 4.7 MEQ/L (3.5-5.1); SODIUM LEVEL 138 MEQ/L (136-145); T UPTAKE 31 % (30-39); THYROXINE (T4) 7.9 UG/DL (4.5-12.0); TOTAL PROTEIN 7.1 GM/DL (6.4-8.2); TRIGLYCERIDES LEVEL 160 MG/DL (<150)
[2020-08-25 11:30] LABS: TOTAL 25(OH) VITAMIN D 16.1 NG/ML (30.0-100.0)
[2020-08-25 11:43] LABS: HEMOGLOBIN A1c 5.1 %
--- NOTE | 2020-08-25 18:08 | ECGEPIP ---
[facility] Test Date: 2020-08-25 Pat Name: DENNYS GANDARA Department: Room: - Gender: Female Shipping Support Clerk: FRAN : 1990 Requested By: Alessia Forbes FPMHNP-BC Order Number: [id number] Reading MD: Nicholas Delacruz Measurements Intervals Butler Rate: 103 P: 68 WI: 143 QRS: 65 QRSD: 85 T: 46 QT: 329 QTc: 431 Interpretive Statements Sinus tachycardia Low QRS complexes voltage in the limb leads Pulmonary disease suggested on the basis of probable right atrial enlargement, persistent S wave in the anterolateral leads Compared to prior tracing of 03/04/2019, there is evidence of pulmonary disease Electronically Signed on 08-25-2020 18:08:46 EST by Nicholas Delacruz
== END ==
LOC: M LAB 10:00
PROVIDERS: ATTEND Nurse Practitioner Psychiatric/Mental Health
DX: F33.9 Major depressive disorder, recurrent, unspecified (principal)